=== PATIENT | female | born 1995 | race Caucasian/White ===

== ENCOUNTER 2024-11-20 16:14 | Outpatient (CLI) | payer OTHER | END 2024-11-20 17:11 | disposition home or self-care (01) | LOC: NST 16:14 | PROVIDERS: ATTEND Obstetrics & Gynecology Gynecology | DX: Z34.83 Encounter for supervision of other normal pregnancy, third trimester (principal) ==

== ENCOUNTER 2024-11-22 07:00 | Outpatient (CLI) | payer OTHER ==
[~2024-11-22] VITALS: Ht 160 cm; Wt 73.9 kg
[2024-11-22 06:30] VITALS: BP 115/76
[2024-11-22] MEDS ORDERED: PRENATAL TABLE1 EAC4 PO (07:03)
[2024-11-22 07:20] VITALS: BP 113/67
[2024-11-22 11:03] VITALS: BP 111/72
[2024-11-22 12:28] VITALS: BP 111/72
== END 2024-11-22 12:28 | disposition home or self-care (01) ==
LOC: OBS/DEL 07:00
PROVIDERS: ATTEND Obstetrics & Gynecology
DX: O36.8130 Decreased fetal movements, third trimester, not applicable or unspecified (principal); Z3A.36 36 weeks gestation of pregnancy

== ENCOUNTER 2024-12-12 11:07 | Outpatient (CLI) | payer OTHER ==
[~2024-12-12 11:07] MED LIST: PRENATAL TABLE1 EAC4 PO
== END 2024-12-12 12:04 | disposition home or self-care (01) ==
LOC: NST 11:07
PROVIDERS: ATTEND Obstetrics & Gynecology Maternal & Fetal Medicine
DX: Z34.83 Encounter for supervision of other normal pregnancy, third trimester (principal)